=== PATIENT | female | born 1945 | race Caucasian/White ===

== ENCOUNTER → 2017-01-14 | Day surgery (SDC) | payer OTHER ==
[~2017-01-14] MED LIST: ALPRAZOLAM PO; AMBIEN PO; BENTYL10 MG PO; CALCIUM PO; CELEXA20 M1 PO; DICLOFENAC PO; DICYCLOMINE HCL20 MG PO; DYAZIDE 37.5/251 CAP PO; LISINOPRIL PO; MIRALAX17 G1 PO; MIRALAX255 GM PO; OMEPRAZOLE20 M1 PO; PROTONIX PO; VICODIN 5/500 T1 TAB PO; VIT B-12 PO; VIT B12 PO; ZOCOR PO
--- NOTE | ~2017-01-14 | OR ---
Unit #: [id number] #: [id number] Patient: CLARE DOWNS [id number] [address] [id number] [id number] O MR#: [id number] NAME: CLARE DOWNS ROOM: Date of Procedure: 01/14/2017 Admission Date: 01/14/2017 Surgeon: Earl Watts M.D. : 1945 Attending Physician: Earl Watts M.D. Primary Care Physician: Ethel Argueta M.D. OPERATIVE REPORT ATTENDING PHYSICIAN Dr. Ethel Argueta. PREOPERATIVE DIAGNOSES Colorectal cancer surveillance. The patient has personal history of colonic adenomas removed in the past. PROCEDURE PERFORMED Colonoscopy up to cecum with excellent preparation and good visualization. POSTOPERATIVE DIAGNOSES The patient had moderate goodson diverticulosis. The diverticula particularly profuse in left side. Rest of the examination was normal. The patient did not have any polyps nor any angiodysplasias. No hemorrhoids were seen. RECOMMENDATIONS Repeat colonoscopy in 5 years. SEDATION USED MAC. DESCRIPTION OF PROCEDURE Following detailed explanation of potential risks and complications of a colonoscopy, namely perforation, bleeding, and complication related to sedation, the patient was brought to GI lab and laid in the left lateral decubitus position. A digital rectal examination was performed which was normal. Lubricated tip of the Olympus video colonoscope was inserted through the anus and advanced under direct vision. The scope was advanced past rectosigmoid into descending colon. Multiple medium sized diverticula were seen in this area. The scope tip was then navigated all the way up to cecum with visualization of the ileocecal valve and the appendiceal orifice. Preparation was excellent with good visualization and photodocumentation was obtained. Successive segments of the colonic mucosa were examined upon withdrawal. The patient was noted to have multiple polyps throughout the colon, but most profuse on the left side of the colon. No polyps were seen. No angiodysplasias were present. The patient did not have any hemorrhoids at the anal verge. The scope was then withdrawn and the patient returned to recovery area. She tolerated the procedure without any postprocedure complications. Dictated by... Unit #: [id number] #: [id number] Patient: DOWNS,LAVLiz Hassan TD: 01/14/2017 13:44 JOB #: [id number] OPERATIVE REPORT X Earl Watts MD PROCEDURE OPERATIVE NOTE
--- NOTE | ~2017-01-14 | EKG ---
PATIENT: CLARE DOWNS UNIT #: [id number] Ventricular Rate: 79 BPM Atrial Rate: 129 BPM QRS Duration: 92 ms Q-T Interval: 416 ms QTC Calculation(Bezet): 477 ms P [place]: 73 degrees Calculated R [place]: -53 degrees Calculated T [place]: 81 degrees Diagnosis Line: Sinus tachycardia with 2nd degree A-V block Diagnosis Line: (Mobitz I) Diagnosis Line: Left axis deviation Diagnosis Line: Abnormal ECG Diagnosis Line: When compared with ECG of 04-MAY-2012 10:39, Diagnosis Line: Sinus rhythm is now with 2nd degree A-V block Diagnosis Line: (Mobitz I) Diagnosis Line: QT has lengthened Diagnosis Line: Confirmed by BRET CROSS MD ([id number]) on Diagnosis Line: 01/16/2017 11:59:24 PM INTERPRETING MD: AMERICA DAHL
[2017-01-14 11:23] LABS: BASOPHIL% 0.6 % (0-2.5); EOSINOPHIL% 0.7 % (0.0-7.0); HEMOGLOBIN 13.3 gm/dL (12.0-16.0); LYMPHOCYTE# 1.1 X10e3 (1.0-3.5); LYMPHOCYTE% 16.7 % (17.0-45.0); MEAN CELL VOLUME 89.2 FL (83-96); MEAN CORPUSCULAR HGB CONC 32.5 g/dL (30-36); MEAN PLATELET VOLUME 8.7 FL (6.5-11.5); MONOCYTE# 0.2 X10e3 (0-1.0); MONOCYTE% 3.5 % (3.0-12.0); NEUTROPHIL# 5.2 X10e3 (1.5-7.1); NEUTROPHIL% 78.5 % (40-75); PLATELET COUNT 229 X10e3 (140-420); RED CELL DISTRIBUTION WIDTH 13.4 % (11.0-15.5); WHITE BLOOD COUNT 6.6 X10e3 (4.0-10.5)
[2017-01-14 11:29] LABS: DIFF IND NO
[2017-01-14 11:58] LABS: ALBUMIN SERUM 4.2 g/dL (3.5-5.0); ALKALINE PHOSPHATASE 39 U/L (32-92); ALT (SGPT) 11 U/L (10-40); AST (SGOT) 17 U/L (10-42); BLOOD UREA NITROGEN 10 mg/dL (9-23); CALCIUM SERUM 9.1 mg/dL (8.4-10.2); CARBON DIOXIDE 24 mmol/L (22-31); CHLORIDE 105 mmol/L (100-111); CREATININE SERUM 0.8 mg/dL (0.6-1.4); GLOM FILT RATE Estimated ABOVE60 mL/min (>60); GLUCOSE FASTING 102 mg/dL (70-110); POTASSIUM 3.8 mmol/L (3.5-5.1); PROTEIN TOTAL SERUM 7.2 g/dL (6.0-8.3); SODIUM 137 mmol/L (135-145)
[2017-01-14 13:33] LABS: URINE SOURCE CLEAN CATCH
[2017-01-14 13:42] LABS: URINE APPEARANCE CLOUDY; URINE BILIRUBIN NEG (NEG); URINE BLOOD NEG (NEG); URINE COLOR YELLOW; URINE GLUCOSE NEG (NEG); URINE KETONE 3+ (NEG); URINE LEUKOCYTE ESTERASE 1+ (NEG); URINE NITRATE NEG (NEG); URINE PH 7.5 (5-8); URINE PROTEIN NEG (NEG); URINE SPECIFIC GRAVITY 1.026 (1.003-1.035)
[2017-01-14 13:44] LABS: URINE BACTERIA AUWI NEG (NEGATIVE); URINE SQUAMOUS EPITHELIAL CELL MOD /[HPF]
[2017-01-14 13:45] LABS: U HYALINE CASTS AUWI 0-2 /[LPF]
== END | disposition home or self-care (01) ==
LOC: COPS 10:05
PROVIDERS: Internal Medicine Gastroenterology
DX: Z12.11 Encounter for screening for malignant neoplasm of colon (principal); Z86.010 Personal history of colon polyps; K57.30 Diverticulosis of large intestine without perforation or abscess without bleeding; R10.9 Unspecified abdominal pain; K59.00 Constipation, unspecified; I10 Essential (primary) hypertension; Z88.2 Allergy status to sulfonamides; I49.9 Cardiac arrhythmia, unspecified
CPT/HCPCS: 80053; 81003; 85025; 93005